=== PATIENT | female | born 1980 | race Caucasian/White ===

== ENCOUNTER 2016-09-05 21:15 | Emergency (ER) | payer OTHER ==
[2016-09-05 22:31] LABS: BASOPHIL 0.2 % (0-2); EOSINOPHIL 2.3 % (0-5); HCT 35.9 % (37.0-47.0); HGB 11.6 g/dl (12.5-16.0); LYMPHOCYTE 18.9 % (15-48); MCH 28.8 pg (25.0-31.0); MCHC 32.3 g/dL (32.0-36.0); MCV 89.1 fL (78.0-100.0); MONOCYTE 8.6 % (0-12); MPV 9.5 fL (6.0-9.5); PLT 355 K/uL (150-400); RBC 4.03 M/uL (4.20-5.40); RDW 14.8 % (11.5-14.0)
[2016-09-05 22:35] LABS: WBC 12.8 K/uL (4.0-10.5)
[2016-09-05 22:49] LABS: BILIRUBIN - TOTAL 0.2 mg/dL (0.1-1.0); CREATININE 0.7 mg/dL (0.5-1.0); POTASSIUM 3.3 mmol/L (3.5-5.1)
[2016-09-06 00:20] LABS: BILIRUBIN NEGATIVE (NEGATIVE); BLOOD NEGATIVE Ery/uL (NEGATIVE); CLARITY CLEAR (CLEAR); COLOR YELLOW (YELLOW); GLUCOSE (U) NORMAL (NORMAL); KETONE (U) NEGATIVE (NEGATIVE); LEUKOCYTES NEGATIVE Leu/uL (NEGATIVE); NITRITE NEGATIVE (NEGATIVE); PROTEIN TRACE (LOW) mg/dL (NEGATIVE); UROBILINOGEN 0.2 mg/dL (0.2-1.0)
[2016-09-06 00:22] LABS: INR 1.96 (0.9-1.2); PROTHROMBIN TIME 21.7 SECONDS (11.7-14.0); PTT 40.5 SECONDS (23.2-31.4)
== END 2016-09-06 05:30 | disposition other institution (70) ==
LOC: FER 21:15
PROVIDERS: Emergency Medicine
DX: I82.412 Acute embolism and thrombosis of left femoral vein (principal); I82.432 Acute embolism and thrombosis of left popliteal vein; Z86.711 Personal history of pulmonary embolism; Z88.2 Allergy status to sulfonamides; Z88.8 Allergy status to other drugs, medicaments and biological substances; Z91.012 Allergy to eggs; Z91.040 Latex allergy status; Z79.01 Long term (current) use of anticoagulants
CPT/HCPCS: 36415; 71275; 80053; 81003; 85025; 85379; 85610; 85730; 93005; 93971